=== PATIENT | female | born 1955 | race Two or more races ===

== ENCOUNTER 2024-06-29 17:57 | Inpatient (IN) | payer MEDICARE ==
[~2024-06-29] VITALS: Ht 167.6 cm; Wt 69.9 kg
[2024-06-29] MEDS: IV NORMAL SALINE 1000 ML BAG IV ONE (18:00)
[2024-06-29 18:13] LABS: BASOPHILS # (AUTO) 0.1 K/UL (0.0-0.2); BASOPHILS % (AUTO) 0.8 % (0.0-2.0); EOSINOPHILS # (AUTO) 0.1 K/uL (0.0-0.7); EOSINOPHILS % (AUTO) 1.1 % (0.0-7.0); HEMATOCRIT 30.6 % (31.2-41.9); HEMOGLOBIN 10.1 g/dL (10.9-14.3); LYMPHOCYTES # (AUTO) 2.2 K/uL (0.8-4.8); LYMPHOCYTES % (AUTO) 23.2 % (20.5-51.5); MEAN CORPUSCULAR HEMOGLOBIN 29.2 uug (24.7-32.8); MEAN CORPUSCULAR HGB CONC 33 g/dL (32.3-35.6); MEAN CORPUSCULAR VOLUME 88.5 fL (75.5-95.3); MONOCYTES # (AUTO) 0.7 K/uL (0.1-1.30); MONOCYTES % (AUTO) 7.2 % (0.0-11.0); NEUTROPHILS # (AUTO) 6.3 K/uL (1.8-8.9); NEUTROPHILS % (AUTO) 67.7 % (38.5-71.5); PLATELET COUNT (AUTO) 396 K/uL (179-408); RED BLOOD CELL COUNT(AUTO) 3.46 MIL/uL (3.63-4.92); WHITE BLOOD COUNT (AUTO) 9.3 K/uL (3.8-11.8)
[2024-06-29 18:18] LABS: DIFFERENTIAL COMMENT 1
[2024-06-29 18:24] LABS: CALCIUM 8.5 mg/dL (8.5-10.1); CARBON DIOXIDE 23 mmol/L (21-32); CHLORIDE 104 mmol/L (98-107); CREATININE 0.9 mg/dL (0.6-1.3); GLUCOSE 143 mg/dL (74-106); SODIUM SERUM 136 mmol/L (136-145); UREA NITROGEN, BLOOD 32 mg/dL (7-18)
[2024-06-29 18:38] LABS: THYROID STIMULATING HORMONE 14.913 mIU/mL (0.358-3.740)
[2024-06-29] MEDS ORDERED: ONDANSETRON 4 MG/2 ML VIAL ONE (18:42)
[2024-06-29] MEDS: ONDANSETRON 4 MG/2 ML VIAL IV ONE (18:44)
[2024-06-29] MEDS ORDERED: PANTOPRAZOLE SODIUM 40 MG VIAL ONE (18:45)
[2024-06-29] MEDS: PANTOPRAZOLE SODIUM 40 MG VIAL IV ONE (18:47)
[2024-06-29] MEDS ORDERED: METO25TA6 PO (19:30)
[2024-06-29] MEDS ORDERED: LEVO25TA9 PO (19:30)
[2024-06-29] MEDS ORDERED: AMIO200T5 PO (19:30)
[2024-06-29] MEDS ORDERED: TICA90TA PO (19:30)
[2024-06-29] MEDS ORDERED: ATOR20TA PO (19:30)
[2024-06-29] MEDS ORDERED: ASPI81TA31 PO (19:30)
[2024-06-29 20:20] LABS: HEMOGLOBIN 9.6 g/dL (10.9-14.3)
[2024-06-29] MEDS ORDERED: ACETAMINOPHEN 325 MG TABLET PO PRN (21:45)
[2024-06-29] MEDS ORDERED: ONDANSETRON 4 MG/2 ML VIAL IV PRN (21:45)
[2024-06-29] MEDS ORDERED: TEMAZEPAM 15 MG CAPSULE PO PRN (21:45)
[2024-06-29] MEDS ORDERED: HYDROCODONE/APAP 5-325MG TABLET PO PRN (21:45)
[2024-06-29] MEDS ORDERED: MAGNESIUM HYDROXIDE 30 ML LIQUID UDC PO PRN (21:45)
[2024-06-29] MEDS: ATORVASTATIN 20 MG TABLET PO SCH (23:10)
[2024-06-29] MEDS: AMIODARONE HCL 200 MG TABLET PO SCH (23:11)
[2024-06-29] MEDS: CHLORHEXIDINE GLUCONATE 15 ML MOUTHWASH MM SCH (23:18)
[2024-06-30 00:06] VITALS: BP 130/63; TEMP 98.6; O2SAT 95
[2024-06-30 04:18] LABS: *BILIRUBIN,URIN NEGATIVE (NEGATIVE); *BLOOD, URINE NEGATIVE (NEGATIVE); *CLARITY,URINE CLEAR (CLEAR); *COLOR,URINE YELLOW (YELLOW); *KETONES,URINE 1+ (NEGATIVE); *PROTEIN,URINE NEGATIVE (NEGATIVE); *UROBILINOGEN,URINE 0.2 E.U./dl (NORMAL); LEUKOCYTE ESTERASE ,URINE NEGATIVE (NEGATIVE); NITRITE, URINE NEGATIVE (NEGATIVE); UGLUCOSE NEGATIVE (NEGATIVE)
[2024-06-30 04:32] VITALS: BP 128/58; TEMP 97.7; O2SAT 97
[2024-06-30] MEDS: PANTOPRAZOLE SODIUM 40 MG TABLET.DR PO SCH (06:08)
[2024-06-30 07:21] LABS: BASOPHILS % (AUTO) 0.6 % (0.0-2.0); EOSINOPHILS % (AUTO) 0.2 % (0.0-7.0); HEMATOCRIT 26.4 % (31.2-41.9); HEMOGLOBIN 8.8 g/dL (10.9-14.3); LYMPHOCYTES # (AUTO) 1.3 K/uL (0.8-4.8); LYMPHOCYTES % (AUTO) 19.5 % (20.5-51.5); MEAN CORPUSCULAR HEMOGLOBIN 29.5 uug (24.7-32.8); MEAN CORPUSCULAR HGB CONC 33 g/dL (32.3-35.6); MEAN CORPUSCULAR VOLUME 88.3 fL (75.5-95.3); MONOCYTES # (AUTO) 0.5 K/uL (0.1-1.30); NEUTROPHILS % (AUTO) 72.7 % (38.5-71.5); PLATELET COUNT (AUTO) 341 K/uL (179-408); RED BLOOD CELL COUNT(AUTO) 2.99 MIL/uL (3.63-4.92); RED CELL DISTRIBUTION WIDTH 14.6 % (12.3-17.7); WHITE BLOOD COUNT (AUTO) 6.9 K/uL (3.8-11.8)
[2024-06-30 07:36] LABS: ALBUMIN 2.9 g/dL (3.4-5.0); BILIRUBIN,TOTAL 0.6 mg/dL (0.2-1.0); CREATININE 0.7 mg/dL (0.6-1.3); MAGNESIUM 2.1 mg/dL (1.8-2.4); POTASSIUM 4.2 mmol/L (3.5-5.1); TOTAL PROTEIN, SERUM 6.2 g/dL (6.4-8.2)
[2024-06-30 07:37] LABS: DIFFERENTIAL COMMENT 1
[2024-06-30 07:46] LABS: CALCIUM 8.2 mg/dL (8.5-10.1)
[2024-06-30] MEDS: LEVOTHYROXINE SODIUM 25 MCG TABLET PO SCH (08:37)
[2024-06-30] MEDS: METOPROLOL TARTRATE 25 MG TABLET PO SCH (08:37)
[2024-06-30 09:21] LABS: THYROID STIMULATING HORMONE 1.87 mIU/mL (0.358-3.740)
[2024-06-30 10:50] VITALS: BP 99/54
[2024-06-30 10:52] VITALS: BP 85/53
[2024-06-30 10:53] VITALS: BP 73/48
[2024-06-30 11:20] LABS: HEMOGLOBIN 8.5 g/dL (10.9-14.3)
[2024-06-30] MEDS: IV LACTATED RINGERS SOLUTION 1,000 ML IV PRN (12:46)
[2024-06-30] MEDS: SOD FERRIC GLUC COMPLX/SUCROSE 125 MG in IV NORMAL SALINE 100 ML IV SCH (13:57)
[2024-06-30 19:53] VITALS: BP_SYST 101; BP_SYST 94; BP_DIAS 43; BP_DIAS 59; TEMP 98.1; O2SAT 95
[2024-07-01 00:39] VITALS: BP 116/41; TEMP 97.4; O2SAT 99
[2024-07-01 04:00] VITALS: BP_SYST 102; BP_SYST 115; BP_DIAS 50; BP_DIAS 54; BP_DIAS 56
[2024-07-01 05:42] VITALS: BP 99/43; TEMP 97.7; O2SAT 96
[2024-07-01 06:44] LABS: BASOPHILS # (AUTO) 0.1 K/UL (0.0-0.2); BASOPHILS % (AUTO) 1.2 % (0.0-2.0); EOSINOPHILS # (AUTO) 0.1 K/uL (0.0-0.7); EOSINOPHILS % (AUTO) 1.3 % (0.0-7.0); HEMATOCRIT 23.6 % (31.2-41.9); LYMPHOCYTES # (AUTO) 2.1 K/uL (0.8-4.8); MEAN CORPUSCULAR HEMOGLOBIN 29.9 uug (24.7-32.8); MEAN CORPUSCULAR HGB CONC 34 g/dL (32.3-35.6); MEAN CORPUSCULAR VOLUME 87.9 fL (75.5-95.3); MONOCYTES # (AUTO) 0.4 K/uL (0.1-1.30); NEUTROPHILS # (AUTO) 3.4 K/uL (1.8-8.9); NEUTROPHILS % (AUTO) 55.5 % (38.5-71.5); PLATELET COUNT (AUTO) 319 K/uL (179-408); RED BLOOD CELL COUNT(AUTO) 2.68 MIL/uL (3.63-4.92); RED CELL DISTRIBUTION WIDTH 14.7 % (12.3-17.7); WHITE BLOOD COUNT (AUTO) 6.1 K/uL (3.8-11.8)
[2024-07-01 06:48] LABS: DIFFERENTIAL COMMENT 1
[2024-07-01 07:28] LABS: CALCIUM 8.2 mg/dL (8.5-10.1); CREATININE 0.8 mg/dL (0.6-1.3); POTASSIUM 3.9 mmol/L (3.5-5.1)
[2024-07-01 08:02] VITALS: BP 114/54; TEMP 97.4; O2SAT 98
[2024-07-01 09:34] VITALS: BP 114/54
== END 2024-07-01 16:15 | disposition home or self-care (01) | DRG 204 ==
LOC: ER 18:02 → UNDOADMIN 21:04 → DOU3 21:04 → TELE3 21:13 → DOU3 21:13 → TELE3 21:42 → MEDSURG3 07-01 08:57
PROVIDERS: ADMIT Internal Medicine; ATTEND Nurse Practitioner Acute Care
DX: I95.1 Orthostatic hypotension (principal); E44.1 Mild protein-calorie malnutrition; K27.4 Chronic or unspecified peptic ulcer, site unspecified, with hemorrhage; D62 Acute posthemorrhagic anemia; E88.09 Other disorders of plasma-protein metabolism, not elsewhere classified; I48.0 Paroxysmal atrial fibrillation; I25.10 Atherosclerotic heart disease of native coronary artery without angina pectoris; Z95.5 Presence of coronary angioplasty implant and graft; I10 Essential (primary) hypertension; E03.9 Hypothyroidism, unspecified; I25.2 Old myocardial infarction; Z90.710 Acquired absence of both cervix and uterus; Z79.02 Long term (current) use of antithrombotics/antiplatelets; Z79.82 Long term (current) use of aspirin; Z79.890 Hormone replacement therapy; Z79.899 Other long term (current) drug therapy; E78.00 Pure hypercholesterolemia, unspecified; Z98.818 Other dental procedure status
CPT/HCPCS: 36415; 70450; 71045; 83550; 83735; 84100; 84443; 84484; 85018; 85025; 93307; 93880; G0378; J2405; J2470; J2916; J7040; J7120

== ENCOUNTER 2024-10-04 16:35 | Emergency (ER) | payer MEDICAID, MEDICARE ==
[~2024-10-04] VITALS: Ht 167.6 cm; Wt 69.9 kg
[~2024-10-04 16:35] MED LIST: AMIO200T5 PO; ASPI81TA31 PO; ATOR20TA PO; LEVO25TA9 PO; METO25TA6 PO; TICA90TA PO
[2024-10-04] MEDS ORDERED: HYDROCODONE/APAP 10-325 MG TABLET ONE (18:47)
[2024-10-04] MEDS: HYDROCODONE/APAP 10-325 MG TABLET PO ONE (18:49)
[2024-10-04] MEDS ORDERED: HYDR-3980 PO (18:52)
[2024-10-04 18:58] VITALS: BP 132/59; O2SAT 100
== END 2024-10-04 18:59 | disposition home or self-care (01) ==
LOC: ER 16:48
DX: M54.50 Low back pain, unspecified (principal); E03.9 Hypothyroidism, unspecified; E78.5 Hyperlipidemia, unspecified; I10 Essential (primary) hypertension; I25.2 Old myocardial infarction; Z79.02 Long term (current) use of antithrombotics/antiplatelets; Z79.82 Long term (current) use of aspirin; Z79.899 Other long term (current) drug therapy; Z90.710 Acquired absence of both cervix and uterus; Z95.5 Presence of coronary angioplasty implant and graft
CPT/HCPCS: A4606; A4663